=== PATIENT | female | born 1970 | race Caucasian/White ===

== ENCOUNTER → 2020-03-14 15:23 | Outpatient (CLI) | payer OTHER, SELFPAY ==
--- NOTE | 2020-03-14 15:24 | MRI_ITS ---
STUDY: MRI BRAIN WITH AND WITHOUT CONTRAST REASON FOR EXAM: Female, 49 years old. weakness in arms and legs R and gt;L headaches TECHNIQUE: Standardized multiplanar fat and water weighted pulse sequences were obtained. IV 20 cc dotarem was administered for the contrast portion of the examination. COMPARISON: None. FINDINGS: Normal size of the ventricles and extra-axial spaces for the patient''s age. Normal white matter tracts of the supratentorial brain. Normal bilateral basal ganglia. Normal thalami. There is no extra-axial fluid accumulation. Normal flow voids within the major intracranial circulation suggesting patency by spin echo criteria. Normal venous enhancement. There is no enhancing intra-axial or extra-axial abnormality. Normal sella turcica, pituitary gland, infundibular stalk, optic chiasm and hypothalamus. Normal tectal plate and pineal gland. Normal midbrain, paige and medulla. Normal cerebellum. Normal basal cisterns. Normal bilateral temporal bones. Normal bilateral internal auditory canals. No demonstrated orbital abnormality, within the constraints of a routine brain study. Normal visualized paranasal sinuses. Normal calvarium and skull base. Normal visualized soft tissue structures. Normal visualized upper cervical spine. MRI/Brain W/WO Contrast IMPRESSION: Normal unenhanced and enhanced MRI of the brain. Electronically Signed: Ajay Tanner MD at 19:38 EDT , Service support ,
--- NOTE | 2020-03-14 15:24 | MRI_ITS ---
STUDY: MRI LUMBAR SPINE WITH AND WITHOUT CONTRAST REASON FOR EXAM: Female, 49 years old. leg weakness TECHNIQUE: Standardized fat and water weighted pulse sequences were obtained in the sagittal and axial planes. IV 20 cc dotarem was administered for the contrast portion of the examination. COMPARISON: None FINDINGS: There are signal changes within the L2-L5 vertebral bodies which have the appearance of red marrow reconversion of uncertain etiology or clinical significance. No evidence for intramedullary bone marrow edema, or neoplasm. T12-L1: Normal endplates. Normal disc height, hydration and morphology. Normal bilateral facet joints. Normal central canal and bilateral lateral recesses. Normal bilateral intervertebral neural foramina. Normal lumbar lordosis. There is no substantial scoliosis. Normal conus medullaris that terminates at T12-L1 L1-2: Normal endplates. Normal disc height, hydration and morphology. Normal bilateral facet joints. Normal central canal and bilateral lateral recesses. Normal bilateral intervertebral neural foramina. L2-3: Normal endplates. Normal disc height, hydration and morphology. Normal bilateral facet joints. Normal central canal and bilateral lateral recesses. Normal bilateral intervertebral neural foramina. L3-4: Normal endplates. Normal disc height, hydration and minimal annular bulge. Normal bilateral facet joints. Normal central canal and bilateral lateral recesses. Normal bilateral intervertebral neural foramina. L4-5: Normal endplates. Normal disc height, desiccation and minor annular bulge.. Bilateral facet arthropathy.. Normal central canal and bilateral lateral recesses. Normal bilateral intervertebral neural foramina. L5-S1: Normal endplates. Normal disc height, hydration and tiny left foraminal disc protrusion. Bilateral facet arthropathy.. Normal central canal and bilateral lateral recesses. Minor left neural foraminal encroachment.. Normal visualized sacral ala. Normal visualized paraspinous soft tissue structures. No abnormal enhancement following contrast injection MRI/Spine Lumbar W/WO Contrast IMPRESSION: Findings which may be consistent with nonspecific red marrow reconversion of. uncertain etiology or clinical significance. No evidence for acute fracture or other significant bony pathology. Minor bulging of the annuli at L3-4 and L4-5. Tiny left foraminal disc protrusion and bilateral facet arthropathy creating minor left neuroforaminal stenosis No enhancing lesions following contrast administration Electronically Signed: Ajay Tanner MD at 19:51 EDT , Service support ,
--- NOTE | 2020-03-14 15:24 | MRI_ITS ---
STUDY: MRI CERVICAL SPINE WITHOUT CONTRAST REASON FOR EXAM: Female, 49 years old. Worsening arm weakness for 4 months TECHNIQUE: Standardized fat and water weighted pulse sequences were obtained in the sagittal and axial planes. COMPARISON: None FINDINGS: A large heterogeneous nodule of the left lobe of the thyroid gland is present measuring 3.58 cm. Normal foramen magnum and brainstem-cervical cord junction. Normal craniovertebral junction. Normal anterior atlantoaxial articulation. Normal odontoid process. There is straightening of the normal cervical lordosis. Normal vertebral bodies and posterior osseous elements. C2-3: Normal endplates. Normal disc height, signal and morphology. Normal central canal and intervertebral neural foramina. C3-4: Normal endplates. Minimal posterior disc space narrowing and annular bulging is present. Normal central canal and intervertebral neural foramina. C4-5: Normal endplates. Minimal posterior disc space narrowing and annular bulging is present. Normal central canal. Mild left foraminal stenosis is present without nerve root compression, due to a vertebral hypertrophy. The right neural foramen is normal. C5-6: Normal endplates. Minimal posterior disc space narrowing is present without bulging of the disc. Normal central canal and intervertebral neural foramina. C6-7: Normal endplates. Minimal posterior disc space narrowing and annular bulging is present. Mild central canal stenosis is present. Normal intervertebral neural foramina. C7-T1: A benign fatty hemangiomas present at T1 vertebral body. Normal endplates. Normal disc height, signal and morphology. Normal central canal and intervertebral neural foramina. Normal cervical cord. There is no demonstrated cervical cord syrinx cavity. Evaluation of the postcontrast images reveals no suspicious enhancement of the bony structures are soft tissue structures. Enhancement is seen in the enlarged heterogeneous left lobe of the thyroid gland. Normal visualized soft tissue structures. MRI/Spine Cervical W/WO Contrast IMPRESSION: 1. Mild multilevel disc space narrowing with annular bulging 2. Mild central canal stenosis at C6-C7. 3. Mild left foraminal stenosis at C4-C5 without demonstrated nerve root compression. 4. A large heterogeneous enhancing nodule of the left lobe of the thyroid gland is present measuring 3.58 cm. Electronically Signed: Cj Mitchell MD at 19:33 EDT , Service support ,
== END ==
PROVIDERS: Referring Provider Psychiatry & Neurology Neurology; Visit Provider Psychiatry & Neurology Neurology
DX: R53.1 Weakness (principal); G95.9 Disease of spinal cord, unspecified; M54.2 Cervicalgia; M54.5 Low back pain
CPT/HCPCS: 70553; 72156; 72158; A9575

== ENCOUNTER → 2020-03-30 | Outpatient (CLI) | payer OTHER, SELFPAY ==
--- NOTE | 2020-03-30 18:10 | MRI_ITS ---
STUDY: MRI THORACIC SPINE WITH AND WITHOUT CONTRAST REASON FOR EXAM: Female, 49 years old. Bilat. leg and arm WEAKNESS, H/A, leg spasms TECHNIQUE: 20ml IV Dotarem was administered for the contrast portion of the examination. COMPARISON: None. FINDINGS: Normal kyphosis of the thoracic spine. There is no substantial scoliosis. T1-2, T2-3, T3-4, T4-5, T5-6, T6-7, T7-8, T8-9, T9-10, T10-11, T11-12: Normal endplates. Normal disc hydration, heights and morphology of the corresponding intervertebral discs. Normal central canal and intervertebral neural foramina at the corresponding levels. Incidental note is made of a hyperintense lesion on T1 and T2 sequences within the T1 vertebral body consistent with an intraosseous hemangioma. Normal visualized thoracic cord. Normal conus medullaris that terminates at the . The soft tissue structures are unremarkable. There is no enhancing abnormality. MRI/Spine Thoracic W/WO Contrast IMPRESSION: No acute disease Electronically Signed: Andrea Gardner MD at 20:02 EDT , Service support ,
== END | disposition home or self-care (01) ==
LOC: MRI 17:58
PROVIDERS: Referring Provider Psychiatry & Neurology Neurology; Visit Provider Psychiatry & Neurology Neurology
DX: R53.1 Weakness (principal)
CPT/HCPCS: 72157; A9575